=== PATIENT | female | born 1945 | race Caucasian/White ===

== ENCOUNTER 2018-12-15 17:26 | Emergency (ER) | payer OTHER ==
[~2018-12-15] VITALS: Ht 154.9 cm; Wt 63.5 kg
[~2018-12-15 17:26] MED LIST: AVAPRO150 MG; HYDROCHLOROTH12.5 M1; NORVASC5 MG; SINGULAIR10 MG; ZOCOR5 MG
== END 2018-12-15 22:11 | disposition home or self-care (01) ==
LOC: ER 17:26
DX: S50.02XA Contusion of left elbow, initial encounter (principal); W22.8XXA Striking against or struck by other objects, initial encounter; Y93.89 Activity, other specified; Y92.89 Other specified places as the place of occurrence of the external cause; Y99.8 Other external cause status